=== PATIENT | male | born 1995 | race Caucasian/White ===

== ENCOUNTER 2019-06-26 15:21 | Emergency (ER) | payer OTHER ==
[~2019-06-26] VITALS: Ht 182.9 cm; Wt 49.9 kg
[~2019-06-26 15:21] MED LIST: ACETAMINOPHEN-1 EAC1 PO; BACTRIM DS TAB1 EACH PO; CEPHALEXIN500 MG PO; CRUTCH1 EACH MISC; SEROQUEL300 MG PO; TRAMADOL HCL50 MG PO; WELLBUTRIN XL300 MG PO
[2019-06-26] MEDS ORDERED: DOXYCYCLINE HY100 MG PO (16:12)
== END 2019-06-26 16:22 | disposition home or self-care (01) ==
LOC: ED 15:21
DX: S51.851A Open bite of right forearm, initial encounter (principal); S61.451A Open bite of right hand, initial encounter; W54.0XXA Bitten by dog, initial encounter; F17.200 Nicotine dependence, unspecified, uncomplicated; Z88.0 Allergy status to penicillin
CPT/HCPCS: 99283